=== PATIENT | female | born 1995 | race Two or more races ===

== ENCOUNTER 2020-10-30 11:16 | Emergency (ER) | payer OTHER ==
[~2020-10-30] VITALS: Ht 165.1 cm; Wt 59.0 kg
[2020-10-30] MEDS ORDERED: ZOFRAN4 MG SL (20:05)
== END 2020-10-30 21:23 | disposition home or self-care (01) ==
LOC: ER 11:16
DX: O46.8X1 Other antepartum hemorrhage, first trimester (principal); O21.0 Mild hyperemesis gravidarum; Z3A.08 8 weeks gestation of pregnancy